=== PATIENT | female | born 1975 | race Caucasian/White ===

== ENCOUNTER 2022-09-07 08:41 | Emergency (ER) | payer OTHER ==
[~2022-09-07] VITALS: Ht 175.3 cm; Wt 63.5 kg
[~2022-09-07 08:41] MED LIST: DESV50 PO; ESTR2 PO; HYDACE5 PO; IBUP400 PO; IBUP600 PO; LAMO100 PO; LORA1 PO; METCAR500 PO; Norco 5-325 Ta1 EACH PO; Percocet 5-3251 EACH PO; SERT50; ZOLM2.5 PO
[2022-09-07] MEDS ORDERED: SUMA25 PO (13:26)
== END 2022-09-07 13:36 | disposition home or self-care (01) ==
LOC: ER 08:41
DX: G43.909 Migraine, unspecified, not intractable, without status migrainosus (principal); Z79.899 Other long term (current) drug therapy
CPT/HCPCS: 70450; J1200; J1885; J2765; J3475

== ENCOUNTER 2022-11-28 11:25 | Day surgery (SDC) | payer OTHER ==
[~2022-11-28] VITALS: Ht 162.6 cm; Wt 72.0 kg
[~2022-11-28 11:25] MED LIST changes: +SUMA25 PO
[2022-11-28] MEDS ORDERED: TURMERIC (11:44)
[2022-11-28 13:01] VITALS: BP 106/83
--- NOTE | 2022-11-28 13:03 | NUR ---
11/28/22 1303 Alicia Barnhart IV DC'D, CATH INTACT. PRESSURE DRESSING APPLIED. PT TOLERATED WELL.
== END 2022-11-28 13:00 | disposition home or self-care (01) ==
LOC: ORSCSDS 11:25
DX: K59.00 Constipation, unspecified (principal); D12.0 Benign neoplasm of cecum; K63.5 Polyp of colon; K62.1 Rectal polyp; K63.89 Other specified diseases of intestine; K57.30 Diverticulosis of large intestine without perforation or abscess without bleeding; K52.9 Noninfective gastroenteritis and colitis, unspecified; G47.33 Obstructive sleep apnea (adult) (pediatric); F43.10 Post-traumatic stress disorder, unspecified
CPT/HCPCS: 88305; J2704; J7120

== ENCOUNTER 2023-05-27 18:05 | Emergency (ER) | payer OTHER ==
[~2023-05-27] VITALS: Ht 162.6 cm; Wt 72.6 kg
[~2023-05-27 18:05] MED LIST changes: +TURMERIC
[2023-05-27 18:44] LABS: BASOPHILS ABSOLUTE AUTO 0.04 K/mm3 (0.00-0.23); BASOPHILS PERCENT AUTO 1 % (0-2); EOSINOPHILS ABSOLUTE AUTO 0.15 K/mm3 (0.00-0.68); EOSINOPHILS PERCENT AUTO 3 % (0-6); Hemoglobin 13.7 g/dL (11.5-16.0); IMMATURE GRAN ABSOLUTE AUTO 0.01 K/mm3 (0.00-0.10); IMMATURE GRAN PERCENT AUTO 0 % (0-1); LYMPHOCYTES ABSOLUTE AUTO 2.46 K/mm3 (0.84-5.20); LYMPHOCYTES PERCENT AUTO 44 % (21-46); MONOCYTES ABSOLUTE AUTO 0.49 K/mm3 (0.16-1.47); MONOCYTES PERCENT AUTO 9 % (4-13); Mean Corpuscular HGB 30.5 pg (26.0-34.0); Mean Corpuscular HGB Conc 32.6 g/dL (31.5-36.5); Mean Corpuscular Volume 94 fL (80-100); Mean Platelet Volume 10.7 fL (9.1-12.4); NEUTROPHILS ABSOLUTE AUTO 2.45 K/mm3 (1.96-9.15); NEUTROPHILS PERCENT AUTO 44 % (41-73); Platelet Count 232 K/mm3 (150-400); RDW Coefficient Variation 12.7 % (11.7-14.2); RDW Standard Deviation 43.8 fL (35.1-46.3); Red Blood Cell Count 4.49 M/mm3 (3.80-5.20)
[2023-05-27 19:10] LABS: Albumin, Blood 4.1 g/dL (3.4-5.0); Albumin/Globulin Ratio 1.1 (0.8-1.8); Bilirubin, Total 0.3 mg/dL (0.1-1.0); Calcium, Blood 9.4 mg/dL (8.5-10.1); Creatinine, Blood 0.7 mg/dL (0.40-1.00); Globulin, Blood 3.8 g/dL (2.2-4.0); Potassium, Blood 3.9 mmol/L (3.5-5.5); Total Protein, Blood 7.9 g/dL (6.4-8.2)
[2023-05-27 21:31] LABS: Source, Urine Clean Catch
[2023-05-27 21:41] LABS: Bilirubin, Urine Neg (Neg); Blood, Urine 5+ (Neg); Glucose Qualitative, Urine Neg (Neg); Ketones, Urine Neg (Neg); Leukocyte Esterase, Urine 1+ (Neg); Nitrite, Urine Neg (Neg); Protein, Urine 2+ (Neg); Urobilinogen, Urine NORM (Normal)
[2023-05-27 21:50] LABS: Appearance, Urine Clear (Clear); Color, Urine Yellow (P-Yellow)
[2023-05-27 21:52] LABS: Bacteria Few /hpf; Red Blood Cells, Urine 25-50 /hpf (0-2); Squamous Epithelial Cells Few /hpf (Few); White Blood Cells, Urine 0-2 /hpf (0-5)
[2023-05-27 22:30] VITALS: BP 146/86
[2023-05-27] MEDS ORDERED: CEPH500 PO (22:38)
== END 2023-05-27 22:49 | disposition home or self-care (01) ==
LOC: ER 18:05
PROVIDERS: Student in an Organized Health Care Education/Training Program
DX: N39.0 Urinary tract infection, site not specified (principal); Z11.52 Encounter for screening for COVID-19
CPT/HCPCS: 71046; 74177; 80053; 81001; 83690; 85025; 87086; 93005; 93010; 99284-25; A9270; Q9967

== ENCOUNTER → 2023-07-03 | Outpatient (CLI) | payer OTHER ==
[~2023-07-03] MED LIST changes: +CEPH500 PO
== END | disposition home or self-care (01) ==
LOC: LAB 17:42 → LAB SHORT 17:42
DX: N39.0 Urinary tract infection, site not specified (principal)
CPT/HCPCS: 87086